=== PATIENT | female | born 1990 | race African-American/Black ===

== ENCOUNTER 2018-09-12 21:04 | Emergency (ER) | payer SELFPAY ==
[~2018-09-12] VITALS: Ht 165.1 cm; Wt 68.0 kg
--- OUTSIDE RECORDS SUMMARY | 2018-09-12 21:07 | XMS REPORT | Clinical Summary ---
Author Author [facility] Address Unknown Phone Unavailable Care Team Providers Care Supervisor Type Photography Name Role Phone Sharpless PCP Allergies No Known Allergies Medications End Date Status Medication Sig Dispensed Refills Start Date Active albuterol HFA (VENTOLIN Inhale 1 puff 0 HFA) 90 mcg/actuation by mouth via inhaler inhaler every 6 (six) hours as needed for Wheezing. 09/11/2018 penicillin v potassium Take 1 tablet 40 tablet 0 (VEETID) 500 MG tablet (500 mg 8 total) by mouth 4 (four) times daily for 10 days. 09/11/2018 acetaminophen-codeine Take 1-2 20 tablet 0 (TYLENOL #3) 300-30 mg tablets by 8 per tablet mouth every 6 (six) hours as needed for Pain for up to 10 days. Max Daily Amount: 8 tablets Active Problems Not on file Encounters Care Team Description Date Type Specialty Amol David MD Pain, dental (Primary Dx) 09/01/2018 Emergency Emergency Medicine 09/01/2018 Travel 05/28/2018 Emergency Emergency Medicine after 09/11/2017 Social History Date Tobacco Use Types Packs/Day Years Used Never Smoker Smokeless Tobacco: Never Used Alcohol Use Drinks/Week oz/Week Comments Yes occasionally Sex Assigned at Date Recorded Not on file Industry Job Start Date Occupation Not on file Not on file Not on file Travel End Travel History Travel Start No recent travel history available. Last Filed Vital Signs Time Taken Vital Sign Reading 09/01/2018 4:32 AM [employer] Blood Pressure 126/67 09/01/2018 4:32 AM [employer] Pulse 75 09/01/2018 4:32 AM [employer] Temperature 36.9 C (98.5 F) 09/01/2018 4:32 AM [employer] Respiratory Rate 18 09/01/2018 4:32 AM [employer] Oxygen Saturation 100% - Inhaled Oxygen - Concentration 09/01/2018 4:32 AM [employer] Weight 69.9 kg (154 lb) 09/01/2018 4:32 AM [employer] Height 165.1 cm (5' 5") 09/01/2018 4:32 AM [employer] Body Mass Index 25.63 Plan of Treatment Not on file Results Not on fileafter 09/11/2017
[2018-09-12] MEDS ORDERED: ALBUTEROL SULF 0.083% NEB SOLN 3 ML NEB NEB STA (21:19)
[2018-09-12] MEDS ORDERED: METHYLPREDNISOLONE SOD SUCC 125 MG/2ML VIAL IM ONE (21:30)
[2018-09-12] MEDS ORDERED: BROMFED DM COU118 ML PO (21:58)
[2018-09-12] MEDS ORDERED: PREDNISONE20 MG PO (21:58)
[2018-09-12] MEDS ORDERED: XYZAL5 MG PO (21:58)
[2018-09-12] MEDS ORDERED: PROAIR HFA INH8.5 GM INH (21:58)
== END 2018-09-12 22:05 | disposition home or self-care (01) ==
LOC: FSED 21:04
DX: R06.00 Dyspnea, unspecified (principal); J45.21 Mild intermittent asthma with (acute) exacerbation
CPT/HCPCS: 99283; J2930